=== PATIENT | female | born 1980 | race Caucasian/White ===

== ENCOUNTER 2020-10-10 05:37 | Observation (INO) | payer BC, OTHER ==
--- NOTE | 2020-10-10 06:23 | XR ---
EXAMINATION TYPE: XR chest 2V DATE OF EXAM: 10/10/2020 COMPARISON: NONE HISTORY: Chest pain. TECHNIQUE: Frontal and lateral views of the chest are obtained. FINDINGS: There is no focal air space opacity, pleural effusion, or pneumothorax seen. The cardiac silhouette size is within normal limits. The osseous structures are intact. Overlying EKG leads are present. IMPRESSION: No acute process.
--- NOTE | 2020-10-10 06:34 | ED ---
Chest Pain HPI - General Chief Complaint: Chest Pain Stated Complaint: Chest Pain Time Seen by Provider: 10/10/20 06:03 Source: patient, EMS, RN notes reviewed Mode of arrival: EMS Limitations: no limitations - History of Present Illness Initial Comments: This a 40-year-old female presents emergency Department with chief complaint of chest pain. Patient states started around 2 AM which woke her up. She states is centralized chest pressure that radiates around. Denies any back pain abdominal pain and she did have slight nausea no vomiting. Denies fevers chills cough congestion. Patient was given aspirin and nitro by EMS. Her pain does improve but states is still there. Patient denies any headache dizziness no history of cardiac disease no family heart history. - Related Data Allergies Allergy/AdvReac Type Severity Reaction Status Date / Time shellfish derived [Shellfish] AdvReac Anaphylaxis Verified 10/10/20 05:43 Review of Systems ROS Statement: Those systems with pertinent positive or pertinent negative responses have been documented in the HPI. ROS Other: All systems not noted in ROS Statement are negative. EKG Findings - EKG Comments: EKG Findings:: EKG 4-6 cultures are sinus tachycardia rate of 103 RI 140 QRS 70 QTC is QTC 340/445 Past Medical History Past Medical History: Asthma History of Any Multi-Drug Resistant Organisms: None Reported Additional Past Surgical History / Comment(s): cyst removal Past Psychological History: No Psychological Hx Reported Smoking Status: Never smoker Past Alcohol Use History: None Reported Past Drug Use History: None Reported General Exam Limitations: no limitations General appearance: alert, in no apparent distress Head exam: Present: atraumatic, normocephalic, normal inspection Eye exam: Present: normal appearance, PERRL, EOMI. Absent: scleral icterus, conjunctival injection, periorbital swelling ENT exam: Present: normal exam, normal oropharynx, mucous membranes moist Neck exam: Present: normal inspection, full ROM. Absent: tenderness, meningismus, lymphadenopathy Respiratory exam: Present: normal lung sounds bilaterally. Absent: respiratory distress, wheezes, rales, rhonchi, stridor Cardiovascular Exam: Present: normal rhythm, tachycardia, normal heart sounds. Absent: systolic murmur, diastolic murmur, rubs, gallop, clicks GI/Abdominal exam: Present: soft, normal bowel sounds. Absent: distended, tenderness, guarding, rebound, rigid Back exam: Absent: CVA tenderness (R), CVA tenderness (L) Neurological exam: Present: alert, oriented X3 Skin exam: Present: warm, dry, intact, normal color. Absent: rash Course Vital Signs 10/10/20 10/10/20 05:38 06:42 Temperature 99.1 F Pulse Rate 111 H 88 Respiratory 18 16 Rate Blood Pressure 125/67 133/78 O2 Sat by Pulse 95 98 Oximetry - Reevaluation(s) Reevaluation #1: 10/10/20 07:35 Patient reevaluated and updated on results. Patient states pain is returning patient will have Nitrol paste placed Chest Pain MDM - MDM 40-year-old female presented to emergency department for chest discomfort. Patient was given aspirin nitro by EMS after did improve her symptoms initially. Patient's having return of symptoms Nitropaste was placed at this time initial workup including cardiac enzymes, EKG and labs that reveal any significant abnormality. Patient will be admitted for cardiology evaluation, echocardiogram. Disposition Clinical Impression: Chest pain Disposition: ADMITTED IP TO THIS HOSP Condition: Fair Referrals: None,Stated [Primary Care Provider] - 1-2 days
[2020-10-10 06:56] LABS: Basophils % (A) 0 %; Eosinophils # (A) 0.1 k/uL (0-0.7); Eosinophils % (A) 1 %; HCT 42.1 % (34.0-46.0); HGB 13.6 gm/dL (11.4-16.0); Lymphocytes # (A) 1.3 k/uL (1.0-4.8); Lymphocytes % (A) 12 %; MCH 30.1 pg (25.0-35.0); MCHC 32.4 g/dL (31.0-37.0); MCV 92.8 fL (80.0-100.0); Monocytes # (A) 0.5 k/uL (0-1.0); Monocytes % (A) 5 %; Neutrophils # (A) 9.1 k/uL (1.3-7.7); Neutrophils % (A) 82 %; Platelet Count 249 k/uL (150-450); RBC 4.54 m/uL (3.80-5.40); RDW 12.8 % (11.5-15.5); WBC 11.1 k/uL (3.8-10.6)
[2020-10-10 07:10] LABS: ALT 25 U/L (4-34); AST 24 U/L (14-36); African American GFR (CKD) >90 (>60 ml/min/1.73 sqM); Albumin 4.1 g/dL (3.5-5.0); Alkaline Phosphatase 83 U/L (38-126); Anion Gap 8 mmol/L; Blood Urea Nitrogen 17 mg/dL (7-17); Calcium 9.1 mg/dL (8.4-10.2); Carbon Dioxide 20 mmol/L (22-30); Chloride 108 mmol/L (98-107); Glucose 113 mg/dL (74-99); Lipase 140 U/L (23-300); Magnesium 2.1 mg/dL (1.6-2.3); Non-African American GFR(CKD) >90 (>60 ml/min/1.73 sqM); Potassium 4.6 mmol/L (3.5-5.1); Sodium 136 mmol/L (137-145); Total Bilirubin 0.4 mg/dL (0.2-1.3); Total Protein 7.2 g/dL (6.3-8.2)
[2020-10-10 07:11] LABS: D-Dimer 0.29 mg/L FEU (<0.60); INR 0.9 (<1.2); Partial Thromboplastin Time 29.5 sec (22.0-30.0); Prothrombin Time 9.4 sec (9.0-12.0)
[2020-10-10] MEDS ORDERED: NITROGLYCERIN OINT 1 INCH/GM PACKET TOPICAL STA (07:35)
[2020-10-10] MEDS ORDERED: HEPARIN SODIUM,PORCINE 5,000 UNIT/ML 1 ML VIAL IV ONE (07:40)
[2020-10-10] MEDS ORDERED: NITROGLYCERIN SL TABS 0.4 MG TAB SUBLINGUAL PRN (07:40)
[2020-10-10] MEDS ORDERED: HEPARIN SODIUM,PORCINE 5,000 UNIT/ML 1 ML VIAL IV PRN (07:40)
[2020-10-10] MEDS ORDERED: HEPARIN SOD,PORK IN 0.45% NACL 25,000 UNIT in 0.45% NACL 1 250ML.BAG IV SCH (07:45)
--- NOTE | 2020-10-10 10:43 | P.CRDCN ---
History of Present Illness Consult date: 10/10/20 Requesting physician: Linda García Reason for Consult (text): chest pain Chief complaint: chest pain History of present illness: This a pleasant 40-year-old female patient with a past medical history of asthma as a child and hiatal hernia for which she underwent lashawn fundoplication about 10 years ago. She is under an increased amount of stress over the last year and a half to 2 years as her child who is 6-1/2 years old has been on a chronic vent since that time and she cares for him at home. She presented to the emergency department with complaints of chest discomfort that woke her up around 2 AM she describes a heavy pressure feeling in the center of her chest that radiates luz und into her back she did have very minimal relief with sublingual nitroglycerin when her by EMS. She is otherwise had no significant relieving or aggravating factors. The pain has been pretty constant since arrival. She's been initiated on a heparin drip. Chest x-ray on admission showed no acute process. EKG showed sinus tachycardia with no evidence of acute ischemia. Vital signs have been stable. Laboratory values show white blood cell count of 11,100, d-dimer was normal at 0.29, sodium 136, potassium 4.6, BUN 17, creatinine 0.69, NT proBNP normal at 83 and troponin negative 1. Upon examination patient is resting in bed she does not appear to be in any acute distress. She continues to complain of discomfort in her chest. She Doesn't complain of any real shortness of breath or dyspnea on exertion but does feel that it difficult to take a deep breath in. She has some very mild epigastric and right upper quadrant pain with palpation. She denies any dizziness or lightheadedness, orthopnea or PND. She has no lower extremity edema. Past Medical History Past Medical History: Asthma History of Any Multi-Drug Resistant Organisms: None Reported Past Surgical History: Adenoidectomy, Hernia Repair, Tonsillectomy Additional Past Surgical History / Comment(s): cyst removal Past Anesthesia/Blood Transfusion Reactions: No Reported Reaction Past Psychological History: No Psychological Hx Reported Smoking Status: Never smoker Past Alcohol Use History: None Reported Past Drug Use History: None Reported Medications and Allergies Home Medications Medication Instructions Recorded Confirmed Type No Known Home Medications 10/10/20 10/10/20 History Allergies Allergy/AdvReac Type Severity Reaction Status Date / Time egg AdvReac Unknown Verified 10/10/20 08:19 shellfish derived [Shellfish] AdvReac Anaphylaxis Verified 10/10/20 08:19 Physical Exam Vitals: Vital Signs Temp Pulse Pulse Resp BP BP Pulse Ox 10/10/20 08:47 98.6 F 82 18 125/80 100 10/10/20 08:20 98.1 F 87 16 128/78 98 10/10/20 06:42 88 16 133/78 98 10/10/20 05:38 99.1 F 111 H 18 125/67 95 Intake and Output 10/09/20 10/10/20 10/10/20 22:59 06:59 14:59 Intake Total 8.82 Balance 8.82 Intake: Amount of Fluid Infused ( 8.82 ml) Other: Weight 113.398 kg 113.398 kg PHYSICAL EXAMINATION: This is a 40-year-old female in no apparent distress at the time of my examination. VITAL SIGNS: Blood pressure 125/80, heart rate 82, respirations 18, temp 98.6F. Patient is 100 % on room air. HEENT: Head is atraumatic, normocephalic. Pupils are equal, round. Sclerae anicteric. Conjunctivae are clear. Mucous membranes of the mouth are moist. Neck is supple. There is no elevated jugular venous pressure. No carotid bruit is heard. CHEST EXAMINATION: Clear to auscultation bilaterally. No wheezes rales or rhonchi. Respirations even and nonlabored. HEART EXAMINATION: Heart regular, positive S1 and S2. No S3. No S4. No clic ks, rubs or murmurs. ABDOMEN: Soft, mild tenderness to palpation involving the right upper quadrant and epigastric area. Bowel sounds are heard. No organomegaly noted. EXTREMITIES: 2+ peripheral pulses with no evidence of peripheral edema and no calf tenderness noted. NEUROLOGIC EXAMINATION: Patient is awake, alert and oriented x3. Results 10/10/20 06:42 10/10/20 06:42 Cardiac Enzymes 10/10/20 10/10/20 Range/Units 06:42 06:42 AST 24 (14-36) U/L Troponin I <0.012 (0.000-0.034) ng/mL Coagulation 10/10/20 Range/Units 06:42 PT 9.4 (9.0-12.0) sec APTT 29.5 (22.0-30.0) sec CBC 10/10/20 Range/Units 06:42 WBC 11.1 H (3.8-10.6) k/uL RBC 4.54 (3.80-5.40) m/uL Hgb 13.6 (11.4-16.0) gm/dL Hct 42.1 (34.0-46.0) % Plt Count 249 (150-450) k/uL Comprehensive Metabolic Panel 10/10/20 Range/Units 06:42 Sodium 136 L (137-145) mmol/L Potassium 4.6 (3.5-5.1) mmol/L Chloride 108 H (98-107) mmol/L Carbon Dioxide 20 L (22-30) mmol/L BUN 17 (7-17) mg/dL Creatinine 0.69 (0.52-1.04) mg/dL Glucose 113 H (74-99) mg/dL Calcium 9.1 (8.4-10.2) mg/dL AST 24 (14-36) U/L ALT 25 (4-34) U/L Alkaline Phosphatase 83 (38-126) U/L Total Protein 7.2 (6.3-8.2) g/dL Albumin 4.1 (3.5-5.0) g/dL Current Medications Generic Name Dose Route Start Last Admin Trade Name Freq PRN Reason Stop Dose Admin Aspirin 325 mg 10/11/20 09:00 Aspirin 325 Mg Tab PO DAILY [facility] Heparin Sodium (Porcine) 0 unit 10/10/20 07:40 Heparin Sodium,Porcine 5,000 Unit/Ml 1 Ml Vial IV Q6HR PRN Low PTT Protocol Heparin Sodium/Sodium Chloride 250 mls @ 10.001 mls/hr 10/10/20 07:45 10/10/20 08:10 25,000 unit/ Sodium Chloride IV 8.819 units/kg/hr .Q24H YASH 10.001 mls/hr Administration Protocol 8.819 UNITS/KG/HR Nitroglycerin 0.4 mg 10/10/20 07:40 Nitroglycerin Sl Tabs 0.4 Mg Tab SUBLINGUAL Q5M PRN Chest Pain Nitroglycerin 1 inch 10/10/20 12:00 Nitroglycerin Oint 1 Inch/Gm Packet TOPICAL Q6HR [facility] Intake and Output 10/09/20 10/10/20 10/10/20 22:59 06:59 14:59 Intake Total 8.82 Balance 8.82 Intake: Amount of Fluid Infused ( 8.82 ml) Other: Weight 113.398 kg 113.398 kg Patient Weight 10/11/20 06:59 Weight 113.398 kg 10/10/20 06:42 10/10/20 06:42 Assessment and Plan Assessment: #1 symptom of chest pain, atypical, troponin negative 1, EKG shows no evidence of acute ischemia #2 remote history of asthma #3 prior history of hiatal hernia, status post Lashawn fundoplication #4 mild epigastric and right upper quadrant tenderness Plan: From cardiology's perspective will continue to trend her troponins. We will tentatively schedule the patient to undergo stress echocardiogram study tomorrow if troponin levels remain negative. We will continue to follow the patient provide further recommendations accordingly. SEE WHEELER note has been reviewed, I agree with a documented findings and plan of care. Patient was seen and examined.
[2020-10-10] MEDS ORDERED: NITROGLYCERIN OINT 1 INCH/GM PACKET TOPICAL SCH (12:00)
[2020-10-10] MEDS: MORPHINE SULFATE 2 MG/ML SYRINGE IVP PRN (12:19)
[2020-10-10] MEDS ORDERED: ONDANSETRON 4 MG/2 ML VIAL IVP PRN (15:47)
[2020-10-10] MEDS ORDERED: ACETAMINOPHEN TAB 325 MG TAB PO PRN (15:47)
--- NOTE | 2020-10-10 15:48 | P.HPIM ---
History of Present Illness H&P Date: 10/10/20 Chief Complaint: Chest pain This is a 40-year-old female with past medical history significant for he had been hernia status post Lashawn fundoplication approximately 10 years ago that presented to the emergency room with chest pain. Patient said that she woke up around 2 in the morning with heavy pressure in the middle of her chest radiating to her back. EMS was activated and patient was provided nitroglycerin with some relief. Patient denies shortness of breath, nausea, or palpitation. Patient was evaluated in the emergency room and twelve-lead EKG showed no acute ischemic changes. Initial troponin was negative. She was placed on observation with cardiology consultation. Review of Systems Review of system: 14 points review of systems were obtained and were negative except to what were mentioned in the HPI. Past Medical History Past Medical History: Asthma History of Any Multi-Drug Resistant Organisms: None Reported Past Surgical History: Adenoidectomy, Hernia Repair, Tonsillectomy Additional Past Surgical History / Comment(s): cyst removal Past Anesthesia/Blood Transfusion Reactions: No Reported Reaction Past Psychological History: No Psychological Hx Reported Smoking Status: Never smoker Past Alcohol Use History: None Reported Past Drug Use History: None Reported Medications and Allergies Home Medications Medication Instructions Recorded Confirmed Type No Known Home Medications 10/10/20 10/10/20 History Allergies Allergy/AdvReac Type Severity Reaction Status Date / Time egg AdvReac Unknown Verified 10/10/20 08:19 shellfish derived [Shellfish] AdvReac Anaphylaxis Verified 10/10/20 08:19 Physical Exam Vitals: Vital Signs Temp Pulse Pulse Resp BP BP BP 10/10/20 14:06 97.9 F 85 18 116/72 10/10/20 11:15 81 14 125/73 10/10/20 08:47 98.6 F 82 18 125/80 10/10/20 08:20 98.1 F 87 16 128/78 10/10/20 06:42 88 16 133/78 10/10/20 05:38 99.1 F 111 H 18 125/67 Pulse Ox 10/10/20 14:06 98 10/10/20 11:15 95 10/10/20 08:47 100 10/10/20 08:20 98 10/10/20 06:42 98 10/10/20 05:38 95 Intake and Output 02/10/10/20 10/10/20 06:59 14:59 22:59 Intake Total 8.82 Balance 8.82 Intake: Amount of Fluid Infused ( 8.82 ml) Other: # Voids 2 Weight 113.398 kg 113.398 kg General: The patient is awake and alert, in no distress Eye: there is normal conjunctiva bilaterally. Neck: The neck is supple, there is no JVD. Cardiovascular: Normal S1-S2, no S3-S4, no murmurs. Respiratory: Lungs clear to auscultation bilaterally Gastrointestinal: Abdomen is soft, nontender Musculoskeletal: There is no pedal edema. Neurological:. Speech is normal. Skin: Skin is warm and dry Results CBC & Chem 7: 10/10/20 06:42 10/10/20 06:42 Labs: Abnormal Lab Results - Last 24 Hours (Table) 10/10/20 10/10/20 10/10/20 Range/Units 06:42 06:42 12:31 WBC 11.1 H (3.8-10.6) k/uL Neutrophils # 9.1 H (1.3-7.7) k/uL APTT 20.9 L (22.0-30.0) sec Sodium 136 L (137-145) mmol/L Chloride 108 H (98-107) mmol/L Carbon Dioxide 20 L (22-30) mmol/L Glucose 113 H (74-99) mg/dL Thrombosis Risk Factor Assmnt - Choose All That Apply Any of the Below Risk Factors Present?: No Assessment and Plan Assessment: 1. Chest pain, with typical and atypical features. ACS ruled out. 12-lead EKG showed no acute ischemic changes. Troponin negative 3 sets. Patient was seen and evaluated by cardiology. Plan for cardiac stress test in the morning. D- dimer in the ER was normal. 2. Morbid obesity, counseled regarding lifestyle modification and exercise 3. History of Lashawn fundoplication 10 years ago 4. DVT prophylaxis with subcu heparin
[2020-10-10] MEDS: HEPARIN SODIUM,PORCINE 5,000 UNIT/ML 1 ML VIAL SQ SCH (21:32)
[2020-10-11 01:52] LABS: Mean Platelet Volume 7.1; Platelet Count 215 k/uL (150-450)
[2020-10-11] MEDS: MORPHINE SULFATE 2 MG/ML SYRINGE IVP PRN ×3 (04:42→13:28)
[2020-10-11] MEDS: HEPARIN SODIUM,PORCINE 5,000 UNIT/ML 1 ML VIAL SQ SCH (07:52)
[2020-10-11 08:05] VITALS: RESP 16
[2020-10-11] MEDS ORDERED: ASPIRIN 325 MG TAB PO SCH (09:00)
[2020-10-11] MEDS ORDERED: ASPIRIN 81 MG PO SCH (09:00)
[2020-10-11 09:25] LABS: Chol/HDL Ratio 2.96; LDL Cholesterol,Calculated 76.6 mg/dL (0.0-131.0); VLDL Calculation 17.4 mg/dL (5.00-40.00)
--- NOTE | 2020-10-11 13:00 | ECHOF ---
Referral Reason:chest pain MEASUREMENTS -------- HEIGHT: 162.6 cm WEIGHT: 113.4 kg BP: 117/75 RVIDd: 3.2 cm (< 3.3) IVSd: 1.0 cm (0.6 - 1.1) LVIDd: 4.5 cm (3.9 - 5.3) LVPWd: 1.3 cm (0.6 - 1.1) IVSs: 1.1 cm LVIDs: 2.8 cm LVPWs: 1.6 cm LAESV Index (A-L): 23.77 ml/m Ao Diam: 2.7 cm (2.0 - 3.7) AV Cusp: 2.0 cm (1.5 - 2.6) LA Diam: 3.5 cm (2.7 - 3.8) MV EXCURSION: 17.027 mm (> 18.000) MV EF SLOPE: 145 mm/s (70 - 150) EPSS: 0.5 cm MV E Obie: 1.00 m/s MV DecT: 134 ms MV A Obie: 0.78 m/s MV E/A Ratio: 1.28 RAP: 5.00 mmHg RVSP: 16.24 mmHg FINDINGS -------- Sinus rhythm. This was a technically difficult study with suboptimal views. The left ventricular size is normal. Left ventricular wall thickness is normal. Overall left vent ricular systolic function is low-normal with, an EF between 50 - 55 %. The right ventricle is normal in size. Normal LA size by volume 22+/-6 ml/m2. The right atrial size is normal. 5.0mg of Lumason was utilized for enhancement of images Interatrial and interventricular septum intact. There is no evidence of aortic regurgitation. There is no evidence of aortic stenosis. No mitral regurgitation. Mild tricuspid regurgitation present. There is no evidence of pulmonary hypertension. The right v entricular systolic pressure, as measured by Doppler, is 16.24mmHg. There is no pulmonic regurgitation present. The aortic root size is normal. IVC Not well visulized. There is no pericardial effusion. CONCLUSIONS -------- 1. The left ventricular size is normal. 2. Left ventricular wall thickness is normal. 3. Overall left ventricular systolic function is low-normal with, an EF between 50 - 55 %. 4. Mild tricuspid regurgitation present. MUSEUM GUIDE: Saadia Jama RDCS
[2020-10-11 14:59] VITALS: BP 119/73; PULSE 96; TEMP 98.3
--- NOTE | 2020-10-11 15:41 | P.PN ---
Progress Note - Text Stress test negative per Dr. Isbell. Patient may be discharged home from a cardiac standpoint. We will sign off. Please re-consult if needed.
--- NOTE | 2020-10-11 16:32 | P.DS ---
Providers Date of admission: 10/10/20 07:50 Expected date of discharge: 10/11/20 Attending physician: Linda García Primary care physician: Stated None Hospital Course: 1. Chest pain, with typical and atypical features. ACS ruled out. 12-lead EKG showed no acute ischemic changes. Troponin negative 3 sets. Patient was seen and evaluated by cardiology. She underwent cardiac stress test that was reported negative by cardiology. She was cleared for discharge. 2. Morbid obesity, counseled regarding lifestyle modification and exercise 3. History of Lashawn fundoplication 10 years ago Patient will be discharged home in a stable condition. I would give her a trial prescription for Protonix 40 mg daily. Follow-up with PCP as directed. Patient Condition at Discharge: Fair Plan - Discharge Summary Discharge Rx Participant: No New Discharge Prescriptions: New Pantoprazole Sodium [Protonix] 40 mg PO DAILY #30 tablet. Discharge Medication List Pantoprazole Sodium [Protonix] 40 mg PO DAILY #30 tablet. 10/11/20 [Rx] Follow up Appointment(s)/Referral(s): None,Stated [Primary Care Provider] - 1-2 days Discharge Disposition: HOME SELF-CARE
--- NOTE | 2020-10-11 16:33 | ECHOS ---
STRESS ECHOCARDIOGRAM LUMASON: N/A Vial INDICATIONS: Chest pain. MEDICATIONS: BASELINE HEART RATE: 79 BASELINE BLOOD PRESSURE: 121/64 MAXIMUM HEART RATE: 168 MAXIMUM BLOOD PRESSURE: 206/94 85% MPHR: 153 100% MPHR: 180 METS: 8.1 MAXIMUM STAGE REACHED: 2 TOTAL EXERCISE TIME: 6 minutes CLINICAL INFORMATION: STRESS DATA: Heart rate 79, pressure is 121/64 mmHg. Baseline EKG showed sinus mechanism. The patient exercised on the treadmill according to Yehuda protocol for a total of 6 minutes and achieved 8.1 METs. Max heart rate was 168, which is about 93% of maximum predicted heart rate. Maximum blood pressure was 206/94 mmHg. Clinically, the patient did not have any symptoms and the EKG did not show any significant ST or T- wave abnormalities concerning for ischemia. ECHOCARDIOGRAM IMAGES: On echocardiogram images from parasternal long axis view, parasternal short axis view, apical 2 chamber and apical 2 chamber were obtained as the baseline images, at the peak of the heart rate as well as on recovery. The echocardiogram images were technically very difficult, but there was no obvious wall motion abnormalities concerning for ischemia. CONCLUSION: 1. Good exercise tolerance. 2. Normal EKG in response to exercise. 3. Technically difficult echocardiogram images. 4. There is no obvious wall motion abnormalities seen. MMODL / IJN: [id number] /
== END 2020-10-11 17:45 | disposition home or self-care (01) ==
LOC: EC 05:37 → 6NMEDSUR 07:50
PROVIDERS: ADMIT Internal Medicine; ATTEND Internal Medicine
DX: R07.9 Chest pain, unspecified (principal); J45.909 Unspecified asthma, uncomplicated; R10.816 Epigastric abdominal tenderness; R10.811 Right upper quadrant abdominal tenderness; E66.01 Morbid (severe) obesity due to excess calories; Z79.899 Other long term (current) drug therapy; Z87.09 Personal history of other diseases of the respiratory system; Z91.013 Allergy to seafood; Z91.012 Allergy to eggs; Z98.890 Other specified postprocedural states; Z20.822 Contact with and (suspected) exposure to COVID-19; Z87.19 Personal history of other diseases of the digestive system
CPT/HCPCS: 96376 ×2; 96366 ×2; 96372 ×2; 96375; 93005 ×2; 96365; 99285; 36415; 94760; 85379; 83880; 80061; 80053; 83690; 83735; 84484; 85025; 85049; 85610; 85730 ×2; 87635; 71046; G0378 ×2; C8929; C8930; J1644 ×3; J2270 ×2; Q9950; 93306; 93351